=== PATIENT | female | born 1985 | race Caucasian/White ===

== ENCOUNTER 2017-04-11 08:44 | Emergency (ER) | payer BC ==
--- NOTE | ~2017-04-11 | US106 ---
[facility] A Service of [facility] RADIOLOGY TEXT RESULTS PATIENT: HERNAN JOSEPH LOCATION: SED : 85 UNIT #: [id number] AGE: [address]: Say Zamarripa MD SEX: F ORDER DR: [id number] [place] [id number] E MR#: [id number] Acc #: [id number] NAME: HERNAN JOSEPH : 1985 SEX: F STUDY DATE/TIME: 04/11/2017 11:07 UNIT: SED ROOM: STUDY DESCRIPTION: US Preg Uterus Transvaginal Attending Physician: Say Zamarripa M.D. Ordering Physician: Say Zamarripa M.D. Primary Care Physician: Rajendra [place] Aprn MEDICAL IMAGING REPORT This report is preliminary unless electronic signature is present. EXAM Pelvic ultrasound. INDICATION Lower abdominal and pelvic pain for the past week. Beta-hCG level 141. PROCEDURE Ibarra-scale and Doppler imaging of the pelvis via transvaginal approach. COMPARISON None FINDINGS The uterus is anteverted and measures 4.9 x 9.6 x 5.4 cm. There is a hyperechoic mass in the posterior uterine body that measures up to 2.3 cm, most in keeping with a fibroid. The left ovary measures 2.5 x 2.9 x 2.7 cm. Right ovary measures 3.1 x 2.7 x 2.9 cm. Ovaries have an unremarkable appearance. The endometrium is thin. There is no fluid or gestational sac seen in the endometrial cavity. IMPRESSION 1. Endometrium is thin and there is no gestational sac seen. 2. Fibroid in the posterior uterine body measuring approximately 2.3 cm. 3. Unremarkable appearance of the ovaries. Dictated by... Dominguez Kebede M.D. THIS IS AN ELECTRONICALLY VERIFIED REPORT Dominguez Kebede M.D. at 04/12/2017 7:07 AM [facility] A Service of [facility] RADIOLOGY TEXT RESULTS PATIENT: HERNAN JOSEPH [id number] UNIT #: [id number] AGE: [address]: Say Zamarripa MD SEX: F ORDER DR: KAL/jia TD: 04/11/2017 14:43 JOB #: [id number] MEDICAL IMAGING REPORT Page 1 of 1
[~2017-04-11 08:44] MED LIST: ACETAMINOPHEN; ACETAMINOPHEN PO; FLINTSTONES T100 MCG; IRON1 TAB; MACRODANTIN PO; NO MEDICATIONS; PHENERGAN25 MG PO; PYRIDIUM100 MG PO; VISTARIL PO; ZANTAC300 MG PO; ZITHROMAX PO; ZOFRAN ODT4 MG PO; [UNRECOGNIZED DRUG - OTHER] PO
[2017-04-11] MEDS ORDERED: DIAZEPAM (08:52)
[2017-04-11 09:16] LABS: URINE SOURCE CLEAN CATCH
[2017-04-11 09:19] LABS: URINE APPEARANCE CLEAR; URINE BILIRUBIN NEG (NEG); URINE BLOOD 1+ (NEG); URINE COLOR YELLOW; URINE GLUCOSE NEG (NORM); URINE KETONE NEG (NEG); URINE LEUKOCYTE ESTERASE NEG (NEG); URINE NITRATE NEG (NEG); URINE PROTEIN NEG (NEG); URINE UROBILINOGEN 0.2 MG/DL (NORM)
[2017-04-11 09:29] LABS: MICRO INDICATED? YES
[2017-04-11 09:30] LABS: CULTURE INDICATED? NO; URINE BACTERIA NEG (NEG); URINE RBC 0-2 /[HPF] (0-2); URINE SQUAMOUS EPITHELIAL CELL MODERATE /[HPF]; URINE WBC NEG /[HPF] (0-5)
[2017-04-11 09:46] LABS: BASOPHIL# 0.1 X10e3 (0-0.3); BASOPHIL% 1.6 % (0-2.5); EOSINOPHIL# 0.1 X10e3 (0-0.7); EOSINOPHIL% 1.4 % (0.0-7.0); HEMATOCRIT 39.5 % (35.0-45.0); HEMOGLOBIN 13.2 gm/dL (12.0-16.0); LYMPHOCYTE# 1.3 X10e3 (1.0-3.5); LYMPHOCYTE% 28.4 % (17.0-45.0); MEAN CELL VOLUME 92.7 FL (83-96); MEAN CORPUSCULAR HGB CONC 33.5 g/dL (30-36); MEAN PLATELET VOLUME 8.6 FL (6.5-11.5); MONOCYTE# 0.3 X10e3 (0-1.0); MONOCYTE% 7.1 % (3.0-12.0); NEUTROPHIL# 2.7 X10e3 (1.5-7.1); NEUTROPHIL% 61.5 % (40-75); PLATELET COUNT 193 X10e3 (140-420); RED BLOOD COUNT 4.26 X10e (3.90-5.30); RED CELL DISTRIBUTION WIDTH 12.8 % (11.0-15.5); WHITE BLOOD COUNT 4.4 X10e3 (4.0-10.5)
[2017-04-11 09:56] LABS: DIFF IND NO
[2017-04-11 10:04] LABS: BUN/CREATININE RATIO 16.66; CALCIUM SERUM 9.7 mg/dL (8.4-10.2); CREATININE SERUM 0.6 mg/dL (0.6-1.4); GLOM FILT RATE Estimated 121.5 mL/min (>60); POTASSIUM 3.5 mmol/L (3.5-5.1)
== END 2017-04-11 13:15 | disposition home or self-care (01) ==
LOC: SED 08:44
PROVIDERS: Emergency Medicine
DX: R10.9 Unspecified abdominal pain (principal); F41.9 Anxiety disorder, unspecified; R11.0 Nausea; Z98.51 Tubal ligation status; Z88.0 Allergy status to penicillin; Z91.040 Latex allergy status
CPT/HCPCS: 36415; 76817; 80048; 81003; 84702; 84703; 85025; 86900; 86901; 96360; 99284